=== PATIENT | male | born 1965 | race Caucasian/White ===

== ENCOUNTER 2016-08-09 04:05 | Emergency (ER) | payer SELFPAY ==
[~2016-08-09] VITALS: Ht 167.6 cm; Wt 113.4 kg
[2016-08-09 04:05] VITALS: BP 141/100
[2016-08-09] MEDS ORDERED: KETOROLAC TROMETH 60MG/2ML VIAL IM ONE (05:00)
== END 2016-08-09 06:06 | disposition home or self-care (01) ==
LOC: ER 04:05
DX: M10.062 Idiopathic gout, left knee (principal); E11.9 Type 2 diabetes mellitus without complications
CPT/HCPCS: 73562; 82962; 96372; 99284; J1885

== ENCOUNTER 2017-05-24 22:31 | Emergency (ER) | payer SELFPAY ==
[~2017-05-24] VITALS: Ht 167.6 cm; Wt 104.3 kg
[2017-05-24 23:37] LABS: Basophils # (auto) 0 uL; Basophils % (auto) 0.6 % (0.0-2.0); Eosinophils # (auto) 0.4 uL; Eosinophils % (auto) 5.3 % (0.0-7.0); Hematocrit 38.6 % (41.0-53.0); Hemoglobin 12.8 g/dL (13.5-17.5); Lymphocytes # (auto) 1.2 uL; Lymphocytes % (auto) 16.3 % (10.0-50.0); Mean Corpuscular Hemoglobin 30.2 pg (28.0-32.0); Mean Corpuscular Hgb Conc. 33.1 g/dL (32.0-36.0); Mean Corpuscular Volume 91.3 fL (80.0-100.0); Monocytes # (auto) 0.7 uL; Monocytes % (auto) 9.2 % (0.0-12.0); Neutrophils # (auto) 4.9 uL; Neutrophils % (auto) 68.6 % (37.0-80.0); Platelet Count (auto) 147 10^3/uL (140-450); Red Blood Cells 4.22 10^6/uL (4.5-5.90); White Blood Cell 7.1 10^3/uL (4.4-10.8)
[2017-05-24 23:46] LABS: Albumin 3.3 g/dL (3.4-5.0); Anion Gap 6 (5-15); BUN/Creatinine Ratio 18.5; Blood Alcohol < 3.0 mg/dL (0-5); Blood Urea Nitrogen 23 mg/dL (7-18); Calcium 8.6 mg/dL (8.5-10.1); Carbon Dioxide 25 mmol/L (21-32); Chloride 107 mmol/L (98-107); GFR African American 79 mL/min; GFR Non-African American 65 mL/min; Glucose 125 mg/dL (74-106); Potassium 4.6 mmol/L (3.5-5.1); Sodium 138 mmol/L (136-145)
[2017-05-24 23:53] LABS: Alanine Aminotransferase 36 U/L (16-61); Alkaline Phosphatase 59 U/L (45-117); Aspartate Aminotransferase 46 U/L (15-37); Bilirubin, Total 0.7 mg/dL (0.2-1.0); Total Protein 7.2 g/dL (6.4-8.2)
[2017-05-25 07:10] LABS: Urine Bacteria NONE SEEN /hpf (None Seen); Urine Blood Negative /uL (Negative); Urine Specific Gravity 1.025 (1.001-1.035); Urine WBC <1 /hpf (0 - 3)
[2017-05-25 07:34] LABS: Alcohol, Urine < 3.0 mg/dL (0-5); Amphetamine Screen, Urine POSITIVE (NEGATIVE); Barbiturate Scree,Urine NEGATIVE (NEGATIVE); Benzodiazephine Screen, Urine NEGATIVE (NEGATIVE); Cannabinoid Screen, Urine NEGATIVE (NEGATIVE); Cocaine Screen, Urine NEGATIVE (NEGATIVE); Opiate Scree,Urine NEGATIVE (NEGATIVE); Phencyclidine Screen, Urine NEGATIVE (NEGATIVE)
[2017-05-25] MEDS ORDERED: LORazepam 2MG/ML-1ML VIAL ONE (09:14)
[2017-05-25] MEDS ORDERED: LORazepam 2MG/ML-1ML VIAL IV ONE (10:00)
[2017-05-25 11:54] VITALS: BP 122/92
== END 2017-05-25 12:15 | disposition home or self-care (01) ==
LOC: EDBD 22:31 → ER 22:32
DX: F15.129 Other stimulant abuse with intoxication, unspecified (principal); I10 Essential (primary) hypertension
CPT/HCPCS: 36415; 70450; 80053; 80307; 80320; 81001; 84484; 85025; 85379; 93005

== ENCOUNTER 2018-04-17 18:05 | Emergency (ER) | payer MEDICAID, OTHER ==
[~2018-04-17] VITALS: Ht 167.6 cm; Wt 113.4 kg
[2018-04-17 18:46] VITALS: BP 155/81
== END 2018-04-17 19:30 | disposition home or self-care (01) ==
LOC: ER 18:09
DX: M10.9 Gout, unspecified (principal); I10 Essential (primary) hypertension; F15.10 Other stimulant abuse, uncomplicated

== ENCOUNTER 2018-08-04 20:33 | Emergency (ER) | payer SELFPAY ==
[~2018-08-04] VITALS: Ht 167.6 cm; Wt 108.9 kg
[2018-08-04 21:02] VITALS: BP 156/106
== END 2018-08-05 00:01 | disposition left against medical advice (07) ==
LOC: ER 20:34
DX: M10.9 Gout, unspecified (principal); Z53.21 Procedure and treatment not carried out due to patient leaving prior to being seen by health care provider

== ENCOUNTER 2018-12-25 09:57 | Emergency (ER) | payer SELFPAY ==
[~2018-12-25] VITALS: Ht 167.6 cm; Wt 108.9 kg
[2018-12-25 10:40] VITALS: BP 127/88
== END 2018-12-25 10:42 | disposition home or self-care (01) ==
LOC: ER 09:57
DX: M10.9 Gout, unspecified (principal); F41.9 Anxiety disorder, unspecified; F15.10 Other stimulant abuse, uncomplicated; I10 Essential (primary) hypertension; Z76.0 Encounter for issue of repeat prescription

== ENCOUNTER 2019-05-05 06:30 | Emergency (ER) | payer SELFPAY ==
[~2019-05-05] VITALS: Ht 170.2 cm; Wt 108.9 kg
[2019-05-05 06:38] VITALS: BP 133/79
== END 2019-05-05 07:25 | disposition left against medical advice (07) ==
LOC: ER 06:30
DX: M10.9 Gout, unspecified (principal); Z53.21 Procedure and treatment not carried out due to patient leaving prior to being seen by health care provider

== ENCOUNTER → 2019-09-04 | Emergency (ER) | payer SELFPAY ==
[~2019-09-04] VITALS: Ht 170.2 cm; Wt 104.3 kg
[~2019-09-04] MED LIST: KETOROLAC TROMETH 60MG/2ML VIAL IM ONE
[2019-09-04 08:54] VITALS: BP 153/87
== END | disposition home or self-care (01) ==
LOC: ER 08:37
DX: M10.072 Idiopathic gout, left ankle and foot (principal); I10 Essential (primary) hypertension; F17.210 Nicotine dependence, cigarettes, uncomplicated; Z76.0 Encounter for issue of repeat prescription
CPT/HCPCS: 96372; 99283; J1885